=== PATIENT | male | born 1975 | race Caucasian/White ===

== ENCOUNTER 2017-02-11 13:19 | Inpatient (IN) | payer BC ==
[~2017-02-11] VITALS: Ht 180.3 cm; Wt 121.6 kg
[2017-02-11] MEDS ORDERED: KETOROLAC TROMETHAMINE 30 MG/ML VIAL IV STA (13:36)
[2017-02-11] MEDS ORDERED: SODIUM CHLORIDE 0.9% 500ML 500 ML IV STA (13:36)
[2017-02-11 14:09] LABS: BASO % 0.2 %; BASO ABS # 0.02 K/uL (0-0.2); COMPLETE YES; EOS % 1.1 %; HEMATOCRIT 39.4 % (42-52); IG% 0.2 %; LYMPH % 12.9 %; LYMPH ABS # 1.37 K/uL (1.2-3.4); MEAN CELL VOLUME 82.6 fL (80-100); MEAN CORPUSCULAR HEMOGLOBIN 29.8 pg (25-34); MEAN PLATELET VOLUME 9.8 fL (7.4-10.4); MONO % 6.5 %; NEUT % 79.1 %; PLATELET COUNT 180 K/uL (130-400); RED BLOOD COUNT 4.77 M/uL (4.7-6.1); WHITE BLOOD COUNT 10.59 K/uL (4.8-10.8)
[2017-02-11] MEDS ORDERED: PANT40TA PO (14:13)
[2017-02-11] MEDS ORDERED: CYCL5TAB PO (14:13)
[2017-02-11] MEDS ORDERED: POTA1POW PO (14:13)
[2017-02-11] MEDS ORDERED: CRGSR/40 PO (14:13)
[2017-02-11] MEDS ORDERED: SODIUM CHLORIDE 0.9% 1000ML 1,000 ML IV STA (14:13)
[2017-02-11] MEDS ORDERED: OLMETAB3 PO (14:13)
[2017-02-11] MEDS ORDERED: LACT10CA3 PO (14:13)
[2017-02-11] MEDS ORDERED: DOXY100C76 PO (14:13)
[2017-02-11 14:24] LABS: BUN/CREATININE RATIO 13.6 (10-20); CALCIUM 8.2 mg/dl (8.5-10.1); CREATININE 1.2 mg/dl (0.60-1.40); POTASSIUM 3.1 mmol/L (3.5-5.1)
[2017-02-11] MEDS ORDERED: ASPIRIN 324 MG CHEW PO STA (14:36)
[2017-02-11] MEDS ORDERED: LEVAQUIN 750MG / 150ML D5W IV STA (14:41)
--- NOTE | 2017-02-11 15:01 | DIAGNOSTIC IMAGING REPORT ---
RIGHT ANKLE MIN 3 VIEWS ROUTINE, LEFT ANKLE MIN 3 VIEWS ROUTINE CLINICAL HISTORY: Bilateral ankle pain. COMPARISON STUDY: None. FINDINGS: No fracture or dislocation within the right or left ankle. Mild bilateral soft tissue swelling. Advanced degenerative changes within the bilateral talonavicular joints. Small posterior calcaneal spurs. IMPRESSION: No fractures. Degenerative changes within the bilateral talonavicular joints. Electronically signed by: Ponce Craft M.D. 02/11/2017 2:59 PM Dictated Date/Time: 02/11/2017 2:58 PM
--- NOTE | 2017-02-11 15:02 | DIAGNOSTIC IMAGING REPORT ---
SINGLE VIEW CHEST CLINICAL HISTORY: Cough. FINDINGS: An AP, portable, upright chest radiograph is correlated with chest CT dated 03/04/2014. The examination is degraded by portable technique and patient rotation. The heart is mildly enlarged. The pulmonary vasculature is noncongested. There are low lung volumes and bibasilar atelectasis. No airspace consolidation, large pleural effusion, or pneumothorax is seen. The bony thorax is grossly intact. IMPRESSION: Cardiomegaly with no acute cardiopulmonary abnormality. Electronically signed by: Jonatan Swanson M.D. 02/11/2017 3:00 PM Dictated Date/Time: 02/11/2017 2:59 PM
[2017-02-11] MEDS ORDERED: POTASSIUM CHLORIDE 10 MEQ TABCR PO STA (15:13)
[2017-02-11] MEDS ORDERED: ONDANSETRON INJ 2 MG/ML 2 ML VIAL IV PRN (15:15)
[2017-02-11] MEDS ORDERED: ACETAMINOPHEN 325 MG TAB PO PRN (15:15)
[2017-02-11 15:24] VITALS: BP 104/76; PULSE 89; TEMP 37; Ht 180.3 cm; Wt 121.6 kg
--- NOTE | 2017-02-11 15:26 | History and Physical ---
History & Physical Date & Time of Service: Feb 11, 2017 at 15:14 Chief Complaint: Ankle And Knee Pain Primary Care Physician: Osmany Zaman D.O. History of Present Illness Source: patient Pt is a 41 yo male who presents to the ER with complaints of worsening bilateral ankle pain that started since the past monday. Pt denies any trauma, redness or swelling and states he also had a kink in his neck when the pain started in addition to bilateral flank pain and chest pain with productive cough. Pt reports following up with his PCP and at [facility] where he had a CTA chest completed which ruled out PE but was told he had a developing pneumonia. The patient was started on Doxycycline after the appointment. His states that the patient had been on antibiotics for the past 2 months for prostatitis but states no urinary sx at this time. The patient has also had blood work done in the office, including for Lyme Disease but does not know the results of the study at this time. Past Medical/Surgical History Medical Problems: (1) HTN (hypertension) Status: Chronic Family History No pertinent family history Social History Smoking Status: Never Smoker Smokeless Tobacco Use: No Alcohol Use: none Marital Status: Occupational Status: employed Allergies Coded Allergies: No Known Allergies (Unverified , 02/11/17) Home Medications Scheduled Carvedilol (Coreg Cr), 40 MG PO QAM Cyclobenzaprine Hcl (Flexeril), 5 MG PO TID Doxycycline Monohydrate (Monodox), 100 MG PO BID Lactobacillus-Inulin (Culturelle), 1 CAP PO DAILY Olmesartan Medoxomil-Amlodipin (Tribenzor), 1 TAB PO DAILY Pantoprazole (Protonix), 40 MG PO DAILY Potassium Chloride Pwd (Klor-Con Pwd), 20 MEQ PO BID Review of Systems Constitutional: No fever, No chills, No sweats, No weakness ENT: No hearing loss, No unusual epistaxis, No nasal symptoms, No sore throat Respiratory: No cough, No sputum, No wheezing, No shortness of breath, No dyspnea on exertion Cardiovascular: + chest pain, No orthopnea, No PND, No edema, No claudication Abdomen: No pain, No nausea, No vomiting, No diarrhea, No constipation Musculoskeletal: + joint pain, No muscle pain, No swelling, No calf pain Genitourinary - Male: No hematuria, No dysuria, No urinary frequency, No urinary urgency Neurologic: No memory loss, No paralysis, No weakness, No numbness/tingling Psychiatric: No depression symptoms, No anhedonism, No anxiety, No insomnia Integumentary: No rash, No itch Physical Exam Vital Signs Date Time Temp Pulse Resp B/P (MAP) Pulse Ox O2 Delivery O2 Flow Rate FiO2 02/11/17 13:21 37.0 108 18 126/82 96 Room Air General Appearance: WD/WN, no apparent distress Eyes: normal inspection, PERRL, EOMI, sclerae normal Neck: supple, no adenopathy, thyroid normal, no JVD Respiratory/Chest: chest non-tender, lungs clear, normal breath sounds, no respiratory distress Cardiovascular: regular rate, rhythm, no edema, no gallop, no JVD Abdomen/GI: normal bowel sounds, non tender, soft, no organomegaly Back: normal inspection, no CVA tenderness, no muscle spasm, normal range of motion Extremities/Musculoskelatal: normal inspection, no calf tenderness, normal capillary refill, no pedal edema Neurologic/Psych: no motor/sensory deficits, alert, normal mood/affect, normal reflexes, oriented x 3 Diagnostics Laboratory Results Results Past 24 Hours Test 02/11/17 13:55 Range/Units White Blood Count 10.59 4.8-10.8 K/uL Red Blood Count 4.77 4.7-6.1 M/uL Hemoglobin 14.2 14.0-18.0 g/dL Hematocrit 39.4 42-52 % Mean Corpuscular Volume 82.6 80-100 fL Mean Corpuscular Hemoglobin 29.8 25-34 pg Mean Corpuscular Hemoglobin Concent 36.0 32-36 g/dl Platelet Count 180 130-400 K/uL Mean Platelet Volume 9.8 7.4-10.4 fL Neutrophils (%) (Auto) 79.1 % Lymphocytes (%) (Auto) 12.9 % Monocytes (%) (Auto) 6.5 % Eosinophils (%) (Auto) 1.1 % Basophils (%) (Auto) 0.2 % Neutrophils # (Auto) 8.37 1.4-6.5 K/uL Lymphocytes # (Auto) 1.37 1.2-3.4 K/uL Monocytes # (Auto) 0.69 0.11-0.59 K/uL Eosinophils # (Auto) 0.12 0-0.5 K/uL Basophils # (Auto) 0.02 0-0.2 K/uL RDW Standard Deviation 43.5 36.4-46.3 fL RDW Coefficient of Variation 14.2 11.5-14.5 % Immature Granulocyte % (Auto) 0.2 % Immature Granulocyte # (Auto) 0.02 0.00-0.02 K/uL Sodium Level 138 136-145 mmol/L Potassium Level 3.1 3.5-5.1 mmol/L Chloride Level 102 98-107 mmol/L Carbon Dioxide Level 26 21-32 mmol/L Anion Gap 10.0 3-11 mmol/L Blood Urea Nitrogen 16 7-18 mg/dl Creatinine 1.20 0.60-1.40 mg/dl Est Creatinine Clear Calc Drug Dose 107.2 ml/min Estimated GFR () 86.5 Estimated GFR (Non- 74.7 BUN/Creatinine Ratio 13.6 10-20 Random Glucose 114 70-99 mg/dl Calcium Level 8.2 8.5-10.1 mg/dl Total Bilirubin 0.7 0.2-1 mg/dl Direct Bilirubin 0.3 0-0.2 mg/dl Aspartate Amino Transf (AST/SGOT) 31 15-37 U/L Alanine Aminotransferase (ALT/SGPT) 64 12-78 U/L Alkaline Phosphatase 99 45-117 U/L Troponin I 1.060 0-0.045 ng/ml Total Protein 7.7 6.4-8.2 gm/dl Albumin 3.0 3.4-5.0 gm/dl Lipase 359 73-393 U/L Lyme Disease IgM Antibody NEG NEG Microbiology Results 02/11/17 Blood Culture, Gary Batch Pending 02/11/17 Blood Culture, Gary Batch Pending Impression Assessment and Plan Pt is a 41 yo male with bilateral ankle pain x 4 days in addition to chest pain with cough which he states is resolving. Pt was initially seen by PCP where he had CXR and then went to [facility] where he had CTA chest which ruled out PE but was told he had pneumonia and thus placed on doxycycline whih he has only been taking for 1 day Bilateral ankle pain - XR determined no fractures. ?if due to lymes as pt had camping trip previous weekend but denies any tick bites. States pain is worse only on ambulation. Will cont on IV doxycycline and await lyme titers. Blood cx and sputum cx pending. NSTEMI - Elev trop in ER 1.06, cont to trend, EKG did determine T wave changes. Will obtain exercise stress ECHO. Start on BB, ASA, statin, nitro as needed HTN - Controlled, restart home medications GERD - Cont PPI Pt is FULL CODE VTE Prophylaxis VTE Risk Assessment Done? Y/N: Yes Risk Level: Low
--- NOTE | 2017-02-11 15:46 | EMERGENCY ROOM VISIT NOTE ---
History Report prepared by Mari: Joel Melara Under the Supervision of: Dr. Bebeto Law D.O. First contact with patient: 13:27 Chief Complaint: ANKLE PAIN Stated Complaint: ANKLE AND KNEE PAIN History of Present Illness The patient is a 41 year old male who presents to the Emergency Room with complaints of worsening bilateral ankle pain that started last week. He says that his right ankle hurts more than his left. The patient states that the pain has made it very hard for him to walk, and he has to walk slowly. He also notes a little bit of knee pain. He says that 4 days ago, he started having a kink in his neck, and the next day, he had an upset stomach with bilateral low back pain. The patient saw his primary care physician 2 days ago, and had a CT of his chest, which revealed the start of pneumonia. The patient has had a cough with clear yellow phlegm that started 2 days ago. He notes that he has had left- sided chest pain that is brought on by coughing. The patient was started on Doxycycline after the appointment. His states that the patient had been on antibiotics for the past 2 months for other issues. The patient had blood work done in the office, including for Lyme Disease. He will get the results back in 2 days. He denies any fevers, sore throat, or runny nose. He has not done any recent hiking or traveling. He has hypertension. The patient does not smoke on a regular basis. Source of History: patient, spouse/significant other Onset: Last week Position: ankle (bilateral) Symptom Intensity: makes it hard for him to walk Timing: worsening Associated Symptoms: + cough (with yellow phlegm), + chest pain (left), No fevers, No sorethroat Note: Associated symptoms: A bit of knee pain. Denies runny nose. Review of Systems See HPI for pertinent positives & negatives. A total of 10 systems reviewed and were otherwise negative. Past Medical & Surgical Medical Problems: (1) HTN (hypertension) (2) NSTEMI (non-ST elevated myocardial infarction) Family History No pertinent family history Social History Smoking Status: Light Tobacco Smoker Marital Status: Housing Status: lives with family Occupation Status: employed Current/Historical Medications Scheduled Carvedilol (Coreg Cr), 40 MG PO QAM Cyclobenzaprine Hcl (Flexeril), 5 MG PO TID Doxycycline Monohydrate (Monodox), 100 MG PO BID Lactobacillus-Inulin (Culturelle), 1 CAP PO DAILY Olmesartan Medoxomil-Amlodipin (Tribenzor), 1 TAB PO DAILY Pantoprazole (Protonix), 40 MG PO DAILY Potassium Chloride Pwd (Klor-Con Pwd), 20 MEQ PO BID Allergies Coded Allergies: No Known Allergies (Unverified , 02/11/17) Physical Exam Vital Signs Date Time Temp Pulse Resp B/P (MAP) Pulse Ox O2 Delivery O2 Flow Rate FiO2 02/11/17 15:25 99 18 101/73 97 Room Air 02/11/17 15:24 Room Air 02/11/17 15:24 94 02/11/17 13:21 37.0 108 18 126/82 96 Room Air Physical Exam GENERAL: sitting up in bed, alert, well appearing, well nourished, no distress, non-toxic EYE EXAM: normal conjunctiva OROPHARYNX: no exudate, no erythema, lips, buccal mucosa, and tongue normal and mucous membranes are moist NECK: supple, no nuchal rigidity, no adenopathy, non-tender LUNGS: Clear to auscultation. Normal chest wall mechanics HEART: no murmurs, S1 normal and S2 normal ABDOMEN: abdomen soft, non-tender, normo-active bowel sounds, no masses, no rebound or guarding. BACK: Back is symmetrical on inspection and there is no deformity, no midline tenderness, no CVA tenderness. SKIN: no rashes and no bruising UPPER EXTREMITIES: upper extremities are grossly normal. LOWER EXTREMITIES: DP 2/4 bilaterally, full active and passive range of motion of hip, knee, and ankle. Able to ambulate. Minimal tenderness bilaterally over dorsal aspect of MTP tracking up to mid-arch of the foot. NEURO EXAM: Normal sensorium, cranial nerves II-XII grossly intact, normal speech, no gross weakness of arms. Medical Decision & Procedures ER Provider Diagnostic Interpretation: CT of chest reading on 02-10-2017: Authenticated by Time Reading Provider(s) Authenticating Date Authenticating OMAR WALLS MD 02-10-2017 16:58 OMAR WALLS MD IMPRESSION: No current CT evidence of pulmonary. Patchy mixed ground-glass and more con areas of parenchymal density predominantly each lower lobe but lateral lingular concerning for potential inflammatory/infectious process i.e. pneumonitis in correct clinical setting. Please correlate with clinical exam. Each khanh is prominent suggesting possibility of lymphadenopathy. Suspected diffuse hepatic fatty infiltration. X-ray results as stated below per my review and the radiologist's interpretation : SINGLE VIEW CHEST CLINICAL HISTORY: Cough. FINDINGS: An AP, portable, upright chest radiograph is correlated with chest CT dated 03/04/2014. The examination is degraded by portable technique and patient rotation. The heart is mildly enlarged. The pulmonary vasculature is noncongested. There are low lung volumes and bibasilar atelectasis. No airspace consolidation, large pleural effusion, or pneumothorax is seen. The bony thorax is grossly intact. IMPRESSION: Cardiomegaly with no acute cardiopulmonary abnormality. Electronically signed by: Jonatan Swanson M.D. 02/11/2017 3:00 PM Dictated Date/Time: 02/11/2017 2:59 PM RIGHT ANKLE MIN 3 VIEWS ROUTINE, LEFT ANKLE MIN 3 VIEWS ROUTINE CLINICAL HISTORY: Bilateral ankle pain. COMPARISON STUDY: None. FINDINGS: No fracture or dislocation within the right or left ankle. Mild bilateral soft tissue swelling. Advanced degenerative changes within the bilateral talonavicular joints. Small posterior calcaneal spurs. IMPRESSION: No fractures. Degenerative changes within the bilateral talonavicular joints. Electronically signed by: Ponce Craft M.D. 02/11/2017 2:59 PM Dictated Date/Time: 02/11/2017 2:58 PM RIGHT ANKLE MIN 3 VIEWS ROUTINE, LEFT ANKLE MIN 3 VIEWS ROUTINE CLINICAL HISTORY: Bilateral ankle pain. COMPARISON STUDY: None. FINDINGS: No fracture or dislocation within the right or left ankle. Mild bilateral soft tissue swelling. Advanced degenerative changes within the bilateral talonavicular joints. Small posterior calcaneal spurs. IMPRESSION: No fractures. Degenerative changes within the bilateral talonavicular joints. Electronically signed by: Ponce Craft M.D. 02/11/2017 2:59 PM Dictated Date/Time: 02/11/2017 2:58 PM Laboratory Results 02/11/17 13:55 Red Blood Count 4.77, Mean Corpuscular Volume 82.6, Mean Corpuscular Hemoglobin 29.8, Mean Corpuscular Hemoglobin Concent 36.0, Mean Platelet Volume 9.8, Neutrophils (%) (Auto) 79.1, Lymphocytes (%) (Auto) 12.9, Monocytes (%) (Auto) 6.5, Eosinophils (%) (Auto) 1.1, Basophils (%) (Auto) 0.2, Neutrophils # (Auto) 8.37, Lymphocytes # (Auto) 1.37, Monocytes # (Auto) 0.69, Eosinophils # (Auto) 0.12, Basophils # (Auto) 0.02 02/11/17 13:55 Test 02/11/17 13:55 White Blood Count 10.59 K/uL (4.8-10.8) Red Blood Count 4.77 M/uL (4.7-6.1) Hemoglobin 14.2 g/dL (14.0-18.0) Hematocrit 39.4 % (42-52) Mean Corpuscular Volume 82.6 fL (80-100) Mean Corpuscular Hemoglobin 29.8 pg (25-34) Mean Corpuscular Hemoglobin Concent 36.0 g/dl (32-36) Platelet Count 180 K/uL (130-400) Mean Platelet Volume 9.8 fL (7.4-10.4) Neutrophils (%) (Auto) 79.1 % Lymphocytes (%) (Auto) 12.9 % Monocytes (%) (Auto) 6.5 % Eosinophils (%) (Auto) 1.1 % Basophils (%) (Auto) 0.2 % Neutrophils # (Auto) 8.37 K/uL (1.4-6.5) Lymphocytes # (Auto) 1.37 K/uL (1.2-3.4) Monocytes # (Auto) 0.69 K/uL (0.11-0.59) Eosinophils # (Auto) 0.12 K/uL (0-0.5) Basophils # (Auto) 0.02 K/uL (0-0.2) RDW Standard Deviation 43.5 fL (36.4-46.3) RDW Coefficient of Variation 14.2 % (11.5-14.5) Immature Granulocyte % (Auto) 0.2 % Immature Granulocyte # (Auto) 0.02 K/uL (0.00-0.02) Anion Gap 10.0 mmol/L (3-11) Est Creatinine Clear Calc Drug Dose 107.2 ml/min Estimated GFR () 86.5 Estimated GFR (Non- 74.7 BUN/Creatinine Ratio 13.6 (10-20) Calcium Level 8.2 mg/dl (8.5-10.1) Magnesium Level 2.2 mg/dl (1.8-2.4) Total Bilirubin 0.7 mg/dl (0.2-1) Direct Bilirubin 0.3 mg/dl (0-0.2) Aspartate Amino Transf (AST/SGOT) 31 U/L (15-37) Alanine Aminotransferase (ALT/SGPT) 64 U/L (12-78) Alkaline Phosphatase 99 U/L (45-117) Troponin I 1.060 ng/ml (0-0.045) Total Protein 7.7 gm/dl (6.4-8.2) Albumin 3.0 gm/dl (3.4-5.0) Lipase 359 U/L (73-393) Lyme Disease IgM Antibody NEG (NEG) Laboratory results per my review. Medications Administered Medications (Trade) Dose Ordered Sig/Debi Route Start Time Stop Time Status Last Admin Dose Admin Sodium Chloride 500 ml @ 999 mls/hr Q31M STAT IV 02/11/17 13:36 02/11/17 14:06 DC 02/11/17 14:11 999 MLS/HR Ketorolac Tromethamine (Toradol Inj) 30 mg NOW STAT IV 02/11/17 13:36 02/11/17 13:39 DC 02/11/17 14:11 30 MG Sodium Chloride 1,000 ml @ 999 mls/hr Q1H1M STAT IV 02/11/17 14:13 02/11/17 15:13 DC 02/11/17 15:08 999 MLS/HR Aspirin (Aspirin Chew) 324 mg NOW STAT PO 02/11/17 14:36 02/11/17 14:37 DC 02/11/17 15:08 324 MG Levofloxacin (Levaquin / D5W) 750 mg NOW STAT IV 02/11/17 14:41 02/11/17 14:43 DC 02/11/17 15:08 750 MG ECG Indication: chest pain Rate (beats per minute): 101 Rhythm: sinus tachycardia Findings: T-wave inversion (lateral and inferior), other (normal intervals) Comparison ECG Date: compared to 03/04/14, flipped t-waves in lateral are new ED Course ED COURSE: Vital signs were reviewed and showed tachycardic vitals. The patients medical record was reviewed The above diagnostic studies were performed and reviewed. ED treatments and interventions as stated above. 1328: The patient was evaluated in room C9. A complete history and physical examination was performed. 1336: Ordered Toradol Inj 30 mg IV, NSS 500 ml @ 999 mls/hr IV. 1413: Ordered NSS 1000 ml @ 999 mls/hr IV. 1435: Upon reevaluation, the patient is resting comfortably.I discussed my findings with the patient and he understands and agrees with the treatment plan. Based on the patients age, coexisting illnesses, exam and lab findings the decision to treat as an inpatient was made. The patient remained stable while under my care. The patient will be evaluated for further management. 1436: Ordered Aspirin Chew 324 mg PO. 1438: I discussed the patient with Dr. Vincent ALLAN fish icer - he will evaluate the patient for further treatment. 1441: Ordered Levaquin / D5W 750 mg IV. Medical Decision Differential diagnosis: Etiologies such as fracture, dislocation, neurovascular compromise, compartment syndrome, soft tissue injury, as well as others were entertained. Medication Reconciliation: I attest that I have personally reviewed the patient' s current medication list. Blood pressure screening: Patient was found to have normal blood pressure on screening and does not require follow-up. Patient is a 41-year-old male who presents the ER for multiple complaints. Initially he is complaining of bilateral foot pain over the metatarsals. He also complains of a chest pain, cough and sore throat which has been present for the past 2 days. Patient had a CT PE yesterday which I reviewed in [facility] system and shows a likely pneumonia. No PEs. I did not repeat this as I felt it was unnecessary. EKG showed flipped T waves and consequently troponin was ordered which was positive. With his foot pain and to check a Lyme. X-ray show no acute fractures. Patient was given aspirin. His chest pains are present with coughing consequently to feel this is likely muscle skeletal but cannot be certain. Question whether his elevated troponin is likely secondary to demand ischemia. He was given aspirin and Levaquin for his pneumonia. He will be admitted to internal medicine for further workup. Consults Time Called: 1434 Consulting Physician: Dr. Vincent ALLAN fish icer Returned Call: 1438 I discussed the patient with Dr. Kaur [place] [facility] [place] - he will evaluate the patient for further treatment. Impression Primary Impression: EKG abnormality Additional Impressions: Chest pain PNA (pneumonia) Elevated troponin Foot pain Scribe Attestation The scribe's documentation has been prepared under my direction and personally reviewed by me in its entirety. I confirm that the note above accurately reflects all work, treatment, procedures, and medical decision making performed by me. Departure Information Dispostion Being Evaluated By Hospitalist Referrals Osmany Zaman D.O. (PCP) Patient Instructions [facility] Problem Qualifiers Additional Impressions: Chest pain Chest pain type: unspecified Qualified Codes: R07.9 - Chest pain, unspecified PNA (pneumonia) Pneumonia type: due to unspecified organism Laterality: unspecified laterality Lung location: unspecified part of lung Qualified Codes: J18.9 - Pneumonia, unspecified organism Foot pain Laterality: bilateral Qualified Codes: M79.671 - Pain in right foot; M79.672 - Pain in left foot
[2017-02-11 16:13] LABS: URINE APPEARANCE CLEAR (CLEAR); URINE BILIRUBIN NEG (NEG); URINE COLOR YELLOW; URINE NITRITE NEG (NEG); URINE SPECIFIC GRAVITY 1.011 (1.000-1.030); UROBILINOGEN NEG (NEG); ZZUR CULT IF INDIC CLEAN CATCH NO
[2017-02-11 16:16] LABS: MANUAL MICROSCOPIC REQUIRED? NO; REVIEW REQ? NO
[2017-02-11 16:56] LABS: PROTHROMBIN TIME (PATIENT) 11.2 SECONDS (9.0-12.0)
[2017-02-11] MEDS: SODIUM CHLORIDE 0.9% 1000ML 1,000 ML IV SCH (17:14)
[2017-02-11] MEDS ORDERED: NURSING VERBAL MED ORDER ONE ×2 (17:15→20:15)
[2017-02-11 19:34] VITALS: BP 110/72; PULSE 89; TEMP 36.9; O2SAT 98
[2017-02-11] MEDS ORDERED: TRAMADOL HCL 50 MG TAB ONE (20:09)
[2017-02-11] MEDS: DOXYCYCLINE IV 100 MG in DEXTROSE 5% 100ML 100 ML IV SCH (20:38)
[2017-02-11] MEDS ORDERED: POTASSIUM CHLORIDE PWD 20 MEQ PACK PO SCH (21:00)
[2017-02-11] MEDS: HEPARIN SOD 5000 UNIT/0.5 ML CARP SQ SCH (21:14)
[2017-02-11 23:23] VITALS: BP_SYST 102; BP_SYST 107; BP_DIAS 72; BP_DIAS 73; PULSE 91; TEMP 37.2; O2SAT 95
[2017-02-11 23:59] VITALS: O2SAT 95
[2017-02-12] MEDS: TRAMADOL HCL 50 MG TAB PO PRN ×3 (00:06→11:24)
[2017-02-12] MEDS: SODIUM CHLORIDE 0.9% 1000ML 1,000 ML IV SCH (01:10)
[2017-02-12 02:43] VITALS: BP 117/75; PULSE 91; TEMP 37.1; O2SAT 99
[2017-02-12 04:00] VITALS: O2SAT 96
[2017-02-12] MEDS: HEPARIN SOD 5000 UNIT/0.5 ML CARP SQ SCH ×2 (05:34→13:47)
[2017-02-12 06:33] LABS: BASO % 0.3 %; BASO ABS # 0.02 K/uL (0-0.2); COMPLETE YES; HEMATOCRIT 35.1 % (42-52); LYMPH % 25.4 %; LYMPH ABS # 1.81 K/uL (1.2-3.4); MEAN CELL VOLUME 83.6 fL (80-100); MEAN CORPUSCULAR HEMOGLOBIN 28.6 pg (25-34); MEAN CORPUSCULAR HGB CONC 34.2 g/dl (32-36); MEAN PLATELET VOLUME 9.5 fL (7.4-10.4); MONO % 10.9 %; NEUT % 61.4 %; PLATELET COUNT 169 K/uL (130-400); WHITE BLOOD COUNT 7.13 K/uL (4.8-10.8)
[2017-02-12 07:01] LABS: BUN/CREATININE RATIO 15.6 (10-20); CREATININE 1.1 mg/dl (0.60-1.40); POTASSIUM 3.4 mmol/L (3.5-5.1)
[2017-02-12 07:14] VITALS: BP 108/73; PULSE 86; TEMP 37.3; O2SAT 96
[2017-02-12] MEDS: DOXYCYCLINE IV 100 MG in DEXTROSE 5% 100ML 100 ML IV SCH (07:59)
[2017-02-12] MEDS ORDERED: NURSING VERBAL MED ORDER ONE ×2 (08:15→11:30)
[2017-02-12] MEDS ORDERED: ASPIRIN 81 MG CHEW PO SCH (09:00)
[2017-02-12] MEDS ORDERED: POTASSIUM CHLORIDE 20 MEQ TABCR PO SCH (09:00)
[2017-02-12] MEDS ORDERED: PANTOprazole SOD 40 MG TAB PO SCH (09:00)
[2017-02-12] MEDS ORDERED: AMLODIPINE BESYLATE 5 MG TAB PO SCH (09:00)
[2017-02-12] MEDS ORDERED: HYDROCHLOROTHIAZIDE 25 MG TAB PO SCH (09:00)
[2017-02-12] MEDS ORDERED: OLMESARTAN MEDOXOMIL 40 MG TAB PO SCH (09:00)
[2017-02-12] MEDS ORDERED: ATORVASTATIN 40 MG TAB PO SCH (09:00)
[2017-02-12] MEDS ORDERED: PERFLUTREN LIPID MICROSPHERE (DEFINITY) IV ONE (10:13)
[2017-02-12] MEDS ORDERED: CARVEDILOL PHOSPHATE 40 MG PO SCH (12:00)
[2017-02-12 12:08] VITALS: BP 108/74; PULSE 67; TEMP 37.1; O2SAT 96
--- NOTE | 2017-02-12 12:36 | ECHOCARDIOGRAM REPORT ---
*NOTICE TO RECEIVING REPUBLICAN AGENCY This information is strictly Confidential and protected under [place] law. [place] law prohibits you from making any further disclosure of this information unless further disclosure is expressly permitted by the written consent of the person to whom it pertains or is authorized by law. A general authorization for the release of medical or other information is not sufficient for this purpose. Hospital accepts no responsibility if the information is made available to any other person, INCLUDING THE PATIENT. Interpretation Summary * Name: RANJAN CARRASCO JR Study Date: 02/12/2017 09:55 AM BP: 108/73 mmHg * Patient Location: C.2T\S\S242\S\2 HR: 87 * : 1975 (M/d/yyyy) Gender: Male Height: 71 in * Age: 41 yrs Ethnicity: CA Weight: 268 lb * Ordering Physician: Phoenix Orozco * Referring Physician: No Doctor, Assigned * Performed By: Adriano Molina RDCS * * Reason For Study: AMI * BSA: 2.4 m2 * -- Conclusions -- * Left ventricular systolic function is normal. * No regional wall motion abnormalities noted. * Ejection Fraction = 50-55%. * There is mild concentric left ventricular hypertrophy. Procedure Details * A complete two-dimensional transthoracic echocardiogram was performed (2D, M-mode, Doppler and color flow Doppler). * The study was technically difficult. * There were technical limitations due to patient'sbody habitus * The study was technically difficult, but visualization was adequate with the administration of Definity ultrasound contrast. * A contrast injection of Definity was performed to improve assessment of LV function. * Contrast was injected into an intravenous site in the left arm. * One vial of Definity ultrasound contrast was diluted in normal saline to a total volume of 10 ml. A total of '5' ml of solution was administered during imaging. * Lot # [id number] of Definity utilized for procedure. * Expiration date . * The attending nurse who injected the contrast agent was ASHLEIGH Quezada. Left Ventricle * The left ventricle is normal in size. * There is mild concentric left ventricular hypertrophy. * Left ventricular systolic function is normal. * Ejection Fraction = 50-55%. * No regional wall motion abnormalities noted. Right Ventricle * The right ventricle is not well visualized. * The right ventricular systolic function is normal as assessed by tricuspid annular plane systolic excursion (TAPSE) (normal >1.5 cm). Atria * The left atrium is mildly dilated. * Borderline right atrial enlargement. * There is no evidence of atrial septal defect, but resolution does not allow assessment for a patent foramen ovale. Mitral Valve * The mitral valve is grossly normal. * There is no mitral valve stenosis. * Significant mitral regurgitation is absent. Tricuspid Valve * The tricuspid valve is not well visualized, but is grossly normal. * There is trace tricuspid regurgitation. Aortic Valve * The aortic valve is not well visualized. * The aortic valve opens well. * No hemodynamically significant valvular aortic stenosis. * No aortic regurgitation is present. Pulmonic Valve * The pulmonary valve is not well seen, but the Doppler examination is normal without significant regurgitation or stenosis. Great Vessels * Borderline aortic root dilatation. * The pulmonary is not well visualized. Pericardium/Pleural * There is no pericardial effusion. Great Vessels * Normal inferior vena cava size and collapsability with sniff indicates a normal right atrial pressure of 3 mmHg MMode 2D Measurements and Calculations IVSd 1.2 cm IVSs 1.4 cm LVIDd 5.6 cm LVIDs 4.4 cm LVPWd 1.2 cm LVPWs 1.5 cm IVS/LVPW 1.0 FS 20.4 % EDV(Teich) 153.0 ml ESV(Teich) 90.0 ml EF(Teich) 41.2 % EDV(cubed) 174.7 ml ESV(cubed) 88.1 ml EF(cubed) 49.6 % % IVS thick 21.7 % % LVPW thick 26.5 % LV mass(C)d 267.2 grams LV mass(C)dI 111.9 grams/m\S\2 LV mass(C)s 254.8 grams LV mass(C)sI 106.7 grams/m\S\2 SV(Teich) 63.0 ml SI(Teich) 26.4 ml/m\S\2 SV(cubed) 86.6 ml SI(cubed) 36.3 ml/m\S\2 EPSS 0.71 cm Ao root diam 3.7 cm Ao root area 10.7 cm\S\2 ACS 1.6 cm LA dimension 4.5 cm asc Aorta Diam 4.3 cm LA/Ao 1.2 LVOT diam 2.1 cm LVOT area 3.4 cm\S\2 LVAd ap4 32.6 cm\S\2 LVLd ap4 7.7 cm EDV(MOD-sp4) 111.0 ml LVAs ap4 21.8 cm\S\2 LVLs ap4 7.4 cm ESV(MOD-sp4) 57.0 ml EF(MOD-sp4) 48.6 % LVAd ap2 37.6 cm\S\2 LVLd ap2 8.6 cm EDV(MOD-sp2) 135.0 ml LVAs ap2 26.0 cm\S\2 LVLs ap2 7.9 cm ESV(MOD-sp2) 71.0 ml EF(MOD-sp2) 47.4 % SV(MOD-sp4) 54.0 ml SI(MOD-sp4) 22.6 ml/m\S\2 SV(MOD-sp2) 64.0 ml SI(MOD-sp2) 26.8 ml/m\S\2 Doppler Measurements and Calculations MV E max keri 91.0 cm/sec MV A max keri 57.0 cm/sec MV E/A 1.6 MV dec time 0.14 sec Ao V2 max 108.3 cm/sec Ao max PG 4.7 mmHg Ao max PG (full) 1.7 mmHg KEVIN(V,A) 2.8 cm\S\2 KEVIN(V,D) 2.8 cm\S\2 LV V1 max PG 3.1 mmHg LV V1 max 87.7 cm/sec TR max keri 229.1 cm/sec
--- NOTE | 2017-02-12 13:17 | Discharge Instructions ---
Discharge Instructions Date of Service Feb 12, 2017. Admission Reason for Admission: Bilateral ankle pain, elevated troponin Discharge Discharge Diagnosis / Problem: Bilateral ankle pain, elevated troponin due to LVH Discharge Goals Goal(s): Decrease discomfort, Improve function, Diagnostic testing (consider stress echocardiogram, work up for possible inflammatory arthritis) Activity Recommendations Activity Limitations: resume your previous activity Lifting Limitations: none Exercise/Sports Limitations: as tolerated May Resume Sexual Activity: when tolerated Shower/Bathe: no limitations Driving or Machine Use: no limitations . Instructions / Follow-Up Instructions / Follow-Up Medications: - COLCHICINE: take twice a day for a week and then reduce to once a day for the rest of the month, intended to treat gouty arthritis - PREDNISONE: starting tomorrow, take 40mg daily x 6 days, no need for taper since only for one week - Ankle pain: no fractures or swelling seen on x-ray, however, both ankles showed advanced degenerative changes. suggesting arthritis. ESR, CRP and uric acid elevated, suggesting acute gouty arthritis treat with colchicine, prednisone and can use ibuprofen if you still have pain in one month you will need to start Allopurinol, discuss with your primary care doctor Lyme titer negative - Elevated troponin: evaluated by cardiology, multiple EKG and echocardiogram, you have left ventricular hypertrophy likely causing the EKG changes and elevated troponin Dr. Hadley suggested that you get a stress echocardiogram as outpatient, can be ordered by primary care doctor FOLLOW UP - Dr. Zaman in one week, call to make appointment, discuss gout diagnosis Current Hospital Diet Patient's current hospital diet: Low Sodium Diet (2gm Na) Discharge Diet Recommended Diet: Regular Diet Pending Studies Studies pending at discharge: no Work Instructions Return To Work: 3 days Lifting Limitations: none Medical Emergencies . Who to Call and When: Medical Emergencies: If at any time you feel your situation is an emergency, please call 911 immediately. . Non-Emergent Contact Non-Emergency issues call your: Primary Care Provider Call Non-Emergent contact if: your pain is worsening . . "Provider Documentation" section prepared by Phoenix Orozco. . VTE Core Measure Inpt VTE Proph given/why not?: Treatment not indicated [place] Drug Monitoring Program Search Results: no issues identified
[2017-02-12] MEDS ORDERED: COLCHICINE 0.6 MG TAB PO ONE (13:30)
[2017-02-12 14:24] LABS: C-REACTIVE PROTEIN 11.7 mg/dl (0-0.29); URIC ACID 7.9 mg/dl (2.6-7.2)
[2017-02-12] MEDS ORDERED: PRD20 PO (14:48)
[2017-02-12] MEDS ORDERED: COLC1CAP3 PO (14:48)
--- NOTE | 2017-02-12 15:03 | Discharge Summary ---
Discharge Summary Date of Service Feb 12, 2017. Discharge Summary Admission Date: Feb 11, 2017 at 15:05 Discharge Date: Feb 12, 2017 Discharge Disposition: Home Principal Diagnosis: Acute gouty arthritis, bilateral ankles Problems/Secondary Diagnoses: Elevated troponin Recent pneumonia Recent prostatitis Procedures: none Consultations: Cardiology Medication Reconciliation New Medications: Colchicine (Colchicine) 0.6 Mg Cap 1 TAB PO BID for 30 Days, #60 TABS 1 Refill Prednisone (Prednisone) 20 Mg Tab 40 MG PO DAILY for 6 Days, #12 TABS 0 Refills Continued Medications: Carvedilol (Coreg Cr) 40 Mg Caper 40 MG PO QAM, CAP Cyclobenzaprine Hcl (Flexeril) 5 Mg Tab 5 MG PO TID, TAB PRN Doxycycline Monohydrate (Monodox) 100 Mg Cap 100 MG PO BID, CAP Lactobacillus-Inulin (Culturelle) 1 Cap Cap 1 CAP PO DAILY Olmesartan Medoxomil-Amlodipin (Tribenzor) 1 Tab Tab 1 TAB PO DAILY Pantoprazole (Protonix) 40 Mg Tab 40 MG PO DAILY, #30 TAB Potassium Chloride Pwd (Klor-Con Pwd) 20 Meq Pack 20 MEQ PO BID Discharge Exam patient without any chest pain currently and none on presentation discussed elevated troponin with cardiology, reviewed echo, attributed to LVH recommend outpatient stress test reviewed x-rays showing degenerative changes reviewed labs, ESR, CRP and uric acid elevated suggesting gouty arthritis Review of Systems: Constitutional: No fever, No chills, No sweats, No weight loss, No weakness , No fatigue, No problem reported Eyes: No worsening of vision, No eye pain, No redness, No discharge, No diplopia, No problem reported ENT: No hearing loss, No unusual epistaxis, No nasal symptoms, No sore throat, No tinnitus, No dental problems, No trouble swallowing, No problem reported Respiratory: No cough, No sputum, No wheezing, No shortness of breath, No dyspnea on exertion, No dyspnea at rest, No hemoptysis, No problem reported Cardiovascular: No chest pain, No orthopnea, No PND, No edema, No claudication, No palpitations, No problem reported Abdomen: No pain, No nausea, No vomiting, No diarrhea, No constipation, No GI bleeding, No problem reported Musculoskeletal: + joint pain (bilateral ankles, so severe that he cannot walk on them), No muscle pain, No swelling, No calf pain, No problem reported Genitourinary - Male: No hematuria, No dysuria, No urinary frequency, No urinary urgency Neurologic: No memory loss, No paralysis, No weakness, No numbness/tingling , No vertigo, No balance problems, No problem reported Psychiatric: No depression symptoms, No anhedonism, No anxiety, No insomnia , No substance abuse, No problem reported Endocrine: No fatigue, No excessive thirst, No excessive urination, No problem reported Hematologic / Lymphatic: No abnormal bleeding/bruising, No clotting problems , No swollen lymph nodes, No night sweats, No problem reported Integumentary: No rash, No itch, No new/changing skin lesions, No color change, No bleeding, No problem reported Physical Exam: General Appearance: WD/WN, no apparent distress Eyes: normal inspection, EOMI, sclerae normal ENT: normal ENT inspection, hearing grossly normal, pharynx normal Neck: supple, no adenopathy, no JVD, trachea midline Respiratory/Chest: chest non-tender, lungs clear, normal breath sounds, no respiratory distress, no accessory muscle use Cardiovascular: regular rate, rhythm, no edema, no gallop, no JVD, no murmur , normal peripheral pulses Abdomen / GI: normal bowel sounds, non tender, soft, no organomegaly Extremities: normal inspection, no calf tenderness, normal capillary refill , no pedal edema, normal range of motion, non-tender, pelvis stable, + pertinent finding (no swelling in ankles bilaterally) Neurologic/Psychiatric: plaster whittler II-XII nml as tested, no motor/sensory deficits , alert, normal mood/affect, normal reflexes, oriented x 3 Skin: normal color, warm/dry, no rash Lymphatic: no adenopathy Hospital Course Pt is a 41 yo male with bilateral ankle pain x 4 days in addition to chest pain with cough which he states is resolving. Pt was initially seen by PCP where he had CXR and then went to [facility] where he had CTA chest which ruled out PE but was told he had pneumonia and thus placed on doxycycline which he has only been taking for 1 day Bilateral ankle pain - XR determined no fractures but it did show advanced degenerative changes bilaterally differential would be Lyme disease, reactive arthritis from recent UTI/URI, gout, inflammatory arthropathy ESR and CRP markedly elevated Uric acid elevated at 7.6 will treat for gouty arthritis with Colchicine, Prednisone, can use ibuprofen also follow up with PCP, would need Allopurinol in one month for uric acid control Elevated troponin - Elev trop in ER 1.06, trended down quickly, EKG did determine T wave changes evaluated by cardiology, attributed EKG changes and troponin to LVH seen on echocardiogram, which showed normal EF, no WM abnormalities suggested outpatient stress test, patient agreeable HTN - Controlled, restart home medications GERD - Cont PPI Pneumonia: continue doxycycline started by PCP Pt is FULL CODE Total Time Spent: Greater than 30 minutes This includes examination of the patient, discharge planning, medication reconciliation, and communication with other providers. Discharge Instructions Please refer to the electronic Patient Visit Report (Discharge Instructions) for additional information. Follow-Up Dr. Zaman later this week Additional Copies To Osmany Zaman D.O.
[2017-02-12 15:22] VITALS: BP 108/74; PULSE 67; TEMP 37.1; O2SAT 96
--- NOTE | 2017-02-12 19:41 | CARDIOLOGY CONSULTATION ---
DATE OF CONSULTATION: 02/12/2017 PERTINENT HISTORY: Mr. Rincon is a 41-year-old white male admitted yesterday with complaints of ankle discomfort and persistent chest discomfort. This consultation was ordered as his troponin was mildly elevated. The patient claims he was in his usual state of health until approximately 4-5 days ago. He had noticed chest discomfort on the left side with associated cough. His PCP in the [place] area ordered a chest x-ray which was unremarkable. A CT scan of the chest was then ordered which ruled out a pulmonary embolism, but suggested an early pneumonia. He was started on antibiotics at that time. His low grade left-sided chest discomfort has persisted constantly throughout this time frame. There are is no change in his discomfort with physical activity. He has not experienced chest discomfort. He further denies nausea, vomiting, or diaphoresis. He has never experienced syncope, presyncope, PND, orthopnea, palpitations, lower extremity edema or claudication. The patient does have a history of hypertension and is currently on 4 different antihypertensives. Currently, he is resting comfortably and without complaints. PAST MEDICAL HISTORY: 1. Hypertension. 2. Mild left ventricular hypertrophy - February 2017. 3. GERD. MEDICATIONS: 1. Coreg CR 40 mg daily. 2. Benicar 40 mg per day. 3. Norvasc 5 mg daily. 4. Hydrochlorothiazide 25 mg per day. 5. Potassium 20 mEq b.i.d. 6. Lipitor 40 mg at bedtime. 7. Aspirin 81 mg per day. 8. Heparin 5000 units subQ q. 8 hours. ALLERGIES: None. SOCIAL HISTORY: The patient is and lives with his . Works in the [employer] industry. Does not use tobacco or alcohol. FAMILY HISTORY: Mother is 70 years old and is wheelchair bound due to rheumatoid arthritis. Father is 69 years old and debilitated with arthritis. Siblings are alive and well. No early coronary artery disease. PHYSICAL EXAMINATION: GENERAL: This is an obese white male lying supine in bed without complaints. VITAL SIGNS: Blood pressure is 108/74 with a regular pulse of 67, respiratory rate is 18, patient is afebrile at 37.1 degrees Celsius. Saturations 96% on room air. HEENT: Negative. NECK: Supple with full carotid upstrokes. No carotid bruits. Jugular venous pressure is flat at 90 degrees. There is no thyromegaly. CARDIOVASCULAR: Reveals a regular rhythm with normal S1 and S2. No S3, S4 or murmurs are noted. LUNGS: Clear without rales, rhonchi, or wheezes. ABDOMEN: Soft, nontender without bruits. EXTREMITIES: Reveal intact radial artery and posterior tibial pulses bilaterally. There is no peripheral edema. DATA: CBC notes hemoglobin of 12.0, hematocrit 35.1, white count of 7.1, and platelet count 169,000. Electrolytes note a sodium of 140, potassium 3.4, chloride 105, bicarb 28, BUN 17, creatinine 1.1, and glucose is 106. Troponin I level is 1.06 with a followup value of 0.866, and 0.682. Magnesium level is normal at 2.2. Three separate EKGs notes sinus rhythm with left ventricular hypertrophy and repolarization changes. Chest x-ray shows cardiomegaly, but no active disease. project geologist is benign. IMPRESSION: Mr. Rincon was admitted with noncardiac chest discomfort and ankle pain. I suspect his mildly elevated troponin is related to his left ventricular hypertrophy. For completeness, could consider stress echocardiogram once his pneumonia has resolved, and his ankle discomfort improves. No need for continued hospitalization from a cardiac perspective. PLAN: 1. Continue usual outpatient medications as you are. 2. Consider stress echocardiogram as an outpatient once he is clinically back to baseline. MEL
== END 2017-02-12 15:50 | disposition home or self-care (01) | DRG 553 ==
LOC: C.EDB 13:20 → C.2T 15:05 → CANRESERV 15:28 → ENRESERV 15:28
PROVIDERS: ADMIT Hospitalist; ATTEND Internal Medicine
DX: M10.9 Gout, unspecified (principal); J18.9 Pneumonia, unspecified organism; M25.571 Pain in right ankle and joints of right foot; M25.572 Pain in left ankle and joints of left foot; R07.9 Chest pain, unspecified; R77.8 Other specified abnormalities of plasma proteins; I51.7 Cardiomegaly; I10 Essential (primary) hypertension; K21.9 Gastro-esophageal reflux disease without esophagitis; F17.200 Nicotine dependence, unspecified, uncomplicated; E66.9 Obesity, unspecified; Z68.37 Body mass index [BMI] 37.0-37.9, adult; Z79.899 Other long term (current) drug therapy